=== PATIENT | male | born 1995 | race Caucasian/White ===

== ENCOUNTER → 2020-09-23 01:09 | Outpatient (CLI) | payer BC, SELFPAY ==
[2020-09-23 20:54] LABS: SARS-CoV-2 RNA PCR Negative
== END ==
PROVIDERS: PCP Nurse Practitioner Family; Visit Provider Internal Medicine Gastroenterology
DX: Z01.812 Encounter for preprocedural laboratory examination (principal); Z20.822 Contact with and (suspected) exposure to COVID-19
CPT/HCPCS: C9803; U0003; U0005

== ENCOUNTER 2020-09-27 00:34 | Day surgery (SDC) | payer BC, SELFPAY ==
[2020-09-14 13:05] VITALS: BMI 25.0
[2020-09-27 09:37] VITALS: BP 114/64; PULSE 77; RESP 18; TEMP 36.7; O2SAT 98; BMI 25.6
[2020-09-27] MEDS: LACTATED RINGERS 1,000 ML 150 ML IV CONT (10:01)
--- NOTE | 2020-09-27 10:37 | WPDANESEPPF ---
Anes - Initial Pre Proc Eval Procedure: Operation Date: 09/27/20 11:00 Proposed Procedures p Colonoscopy - Mateus Dougherty MD Date/Time: 09/27/20 10:37 Surgeon: Mateus Dougherty MD Pre Op Diagnosis: Rectal Bleeding Patient Data Age: 25 Gender: M Height: 5 ft 10 in Weight: 81.1 kg Last Vital Signs Temp 98.1 F 09/27/20 09:37 Pulse 77 09/27/20 09:37 Resp 18 09/27/20 09:37 BP 114/64 09/27/20 09:37 Pulse Ox 98 09/27/20 09:37 Allergies Allergy/AdvReac Type Severity Reaction Status Date / Time No Known Allergies Allergy Verified 09/14/20 13:05 Home Medications Medication Instructions Recorded Confirmed Type albuterol sulfate 90 mcg/actuation 1 inh INHALATION Q4H PRN #18 gm 08/29/20 09/14/20 Rx aerosol inhaler Patient hx anesthesia problems: none Family hx anesthesia problems: none PMFSH Past Medical History Medical History (Updated 08/29/20 @ 10:42 by Amy Kraft NP) Asthma Cervicalgia Encounter for wellness examination Foot deformity, congenital Lumbago Rectal bleeding Rhinitis Thoracic back pain Social History Social History Smoking status: Never smoker Alcohol intake: current Alcohol use details: ON A WEEKEND OCCASIONALLY Living arrangements: alone Gender identity (if verbalized by the patient): Male Spiritual care concerns: No Anes - Eval Final PreProcedure Day of Procedure 09/27/20 10:37 Patient weight: normal Heart: regular rate and rhythm Lungs: clear to auscultation Airway: Mallampati scale class II Neurological: alert and oriented Last oral intake: >/= 8 hours ASA classification: II Emergent: no Anesthetic plan: proceed Anesthesia type and monitoring: general GIVS and standard monitoring Informed Consent: The patient's anesthetic plan and its attendant risks and benefits were discussed with the patient/family/POA. Questions were solicited and answers provided to the satisfaction of the patient/family/POA.
--- NOTE | 2020-09-27 10:41 | P.HP_ITS ---
History of Present Illness History of Present Illness Consent: Risks, benefits, and alternatives have been discussed and questions answered. Patient agrees to proceed with procedure. Chief complaint: Rectal Bleeding Narrative: Davis Christensen is a 25 year old male with episode of rectal bleeding, never had colonoscopy Review of Systems Constitutional: Constitutional: Denies headache(s) and Denies weakness Eyes: Eyes: Denies blurry vision ENT: Reports Normal hearing present, Denies headache(s) and Denies neck pain Cardiovascular: Cardiovascular: Denies chest pain and Denies dyspnea Respiratory: Respiratory: Denies dyspnea Gastrointestinal: Gastrointestinal: Reports no additional gastrointestinal complaints Genitourinary: Genitourinary: Denies dysuria Musculoskeletal: Musculoskeletal: Denies neck pain Integumentary/Breasts: Skin/Breast: Denies dry skin Neurologic: Reports Normal hearing present, Denies headache(s) and Denies wea kness Psychiatric: Psychiatric: Denies anxiety Endocrine: Endocrine: Denies change in body appearance Hematologic/Lymphatic: Hematologic/Lymphatic: Denies easy bleeding Allergic/Immunologic: Allergic/Immunologic: Denies urticaria PMFSH Past Medical History Medical History (Updated 09/27/20 @ 10:42 by Mateus Dougherty MD) Asthma Blood in stool Cervicalgia Encounter for wellness examination Foot deformity, congenital Lumbago Rectal bleeding Rhinitis Thoracic back pain Social History Social History Smoking status: Never smoker Alcohol intake: current Alcohol use details: ON A WEEKEND OCCASIONALLY Living arrangements: alone Gender identity (if verbalized by the patient): Male Spiritual care concerns: No Meds Home Medications and Allergies Home Medications Medication Instructions Recorded Confirmed Type albuterol sulfate 90 mcg/actuation 1 inh INHALATION Q4H PRN #18 gm 08/29/20 09/14/20 Rx aerosol inhaler Allergies Allergy/AdvReac Type Severity Reaction Status Date / Time No Known Allergies Allergy Verified 09/14/20 13:05 Vital Signs Vital Signs - 24 hr 09/27/20 09:37 Temperature 98.1 F Pulse Rate 77 Respiratory Rate 18 Blood Pressure 114/64 Pulse Oximetry 98 Exam Const: General: comfortable and no acute distress HENMT: General nose exam: Normal nares present Eyes: General: appearance normal, both eyes and all related structures Neck: Neck: no JVD Resp: Auscultation: clear to auscultation bilaterally Cardio: Rate: regular rate Rhythm: regular rhythm GI: Inspection: non-distended GI Palp: Yes Soft to palpation Skin: General skin exam: normal color Neuro: General: gait normal Speech: normal speech Extrem: General: normal to inspection Psych: Mental Status: mental status grossly normal Assessment and Plan Assessment and plan (1) Blood in stool: Code(s): K92.1 - Melena Status: Acute Assessment and Plan: colonoscopy
[2020-09-27 11:00] VITALS: BP 104/66; PULSE 72; RESP 14; O2SAT 100
[2020-09-27 11:10] VITALS: BP 110/67; PULSE 65; RESP 24; O2SAT 100
[2020-09-27 11:20] VITALS: BP 113/67; PULSE 64; RESP 22; O2SAT 100
[2020-09-27 11:30] VITALS: BP 101/60; PULSE 69; RESP 13; O2SAT 100
== END 2020-09-27 11:35 | disposition home or self-care (01) ==
PROVIDERS: PCP Family Medicine; Visit Provider Internal Medicine Gastroenterology
PROC: 0DJD8ZZ Inspection of Lower Intestinal Tract, Via Natural or Artificial Opening Endoscopic (ICD-10-PCS; CPT 45378; principal; 2020-09-27 11:00)
DX: K92.1 Melena (principal); D12.3 Benign neoplasm of transverse colon; K63.5 Polyp of colon; K64.8 Other hemorrhoids; J45.909 Unspecified asthma, uncomplicated
CPT/HCPCS: 45385; 88305; J2704; J7120

== ENCOUNTER 2022-06-10 12:11 | Outpatient (CLI) | payer BC, SELFPAY ==
--- NOTE | ~2022-06-10 | XR_ITS ---
EXAMINATION: XR shoulder RT min 2V INDICATION: Chronic right shoulder pain TECHNIQUE: Four views of the right shoulder are submitted. COMPARISON: None FINDINGS: Normal alignment. No fracture. Glenohumeral and acromioclavicular joint spaces are normal. Soft tissues are unremarkable. IMPRESSION: 1. No acute osseous abnormality. Reviewed, dictated and finalized at location B. NFORMATICIST
== END 2022-06-10 12:12 | disposition home or self-care (01) ==
LOC: ANHIMG 12:17
PROVIDERS: PCP Family Medicine; Visit Provider Nurse Practitioner Family
DX: M25.511 Pain in right shoulder (principal)
CPT/HCPCS: 73030

== ENCOUNTER → 2022-11-25 10:08 | Outpatient (CLI) | payer BC, SELFPAY ==
--- NOTE | ~2022-11-25 | XR_ITS ---
PA, oblique, and lateral views of the left third finger Clinical history: Pain FINDINGS: No fracture or dislocation seen. Osseous alignment is anatomic. Joint spaces are preserved. Soft tissues are unremarkable. IMPRESSION: Unremarkable exam. Reviewed, dictated and finalized at location M. IMPRESSION: Unremarkable exam.
== END ==
PROVIDERS: PCP Family Medicine; Visit Provider Nurse Practitioner Family
DX: M79.645 Pain in left finger(s) (principal)
CPT/HCPCS: 73140

== ENCOUNTER → 2023-08-07 10:53 | Outpatient (CLI) | payer BC, SELFPAY ==
--- NOTE | ~2023-08-07 | XR_ITS ---
Left Hand Technique: PA, oblique, and lateral views were obtained. Clinical History: Pain Findings: No acute fracture or dislocation is seen. Osseous alignment is anatomic. Joint spaces are p reserved. Soft tissues are unremarkable. Impression: Unremarkable left hand. Reviewed, dictated and finalized at location M. IMAN HELPER Impression: Unremarkable left hand.
--- NOTE | ~2023-08-07 | XR_ITS ---
Right Hand Technique: PA, oblique, and lateral views were obtained. Clinical History: Pain Findings: No acute fracture or dislocation is seen. Osseous alignment is anatomic. Joint spaces are p reserved. Soft tissues are unremarkable. Impression: Unremarkable right hand. Reviewed, dictated and finalized at location M. POTATO CUTTER Impression: Unremarkable right hand.
== END ==
PROVIDERS: PCP Family Medicine; Visit Provider Nurse Practitioner Family
DX: M79.642 Pain in left hand (principal); M79.641 Pain in right hand
CPT/HCPCS: 73120

== ENCOUNTER 2023-12-23 11:46 | Emergency (ER) | payer BC, SELFPAY ==
[2023-12-23] VITALS (10 sets, daily range): BP systolic 105–141; BP diastolic 66–94; PULSE 65–75; RESP 17–18; TEMP 36.7; O2SAT 99–100
--- NOTE | ~2023-12-23 | CT_ITS ---
EXAMINATION: CT abdomen pelvis w con DATE: 12/23/2023 13:47 INDICATION: Abdominal distention TECHNIQUE: Computed tomography (CT) of the abdomen and pelvis was performed with 100 cc intravenous c ontrast. The dose-length product was 784.24 mGy-cm. Automated exposure control and iterative reconstr uction technique were employed. COMPARISON: None. FINDINGS: Lung bases unremarkable. Heart size normal. No significant pleural or pericardial effusion. No significant vascular abnormality. No significant pleural or pericardial effusion. Small hiatal he rnia. The liver, spleen, pancreas, adrenal glands and kidneys are unremarkable. Nonobstructive bowel gas pa ttern. There are mildly prominent ileocolic lymph nodes, likely reactive. Small fat-containing umbili christine hernia. No focal lytic or blastic lesions. There is grade 1 degenerative spondylolisthesis at L5- S1. IMPRESSION: 1. No acute abdominal abnormality. 2: Mildly enlarged ileocolic lymph nodes, likely reactive. 3: Small hiatal hernia. Reviewed, dictated and finalized at location B.
[2023-12-23 12:15] LABS: Basophils Percent Auto 0.6 % (0.2-1.2); Eosinophils Absolute Auto 0.2 K/mm3 (0-0.3); Eosinophils Percent Auto 2.8 % (0-4.4); Hematocrit 44.7 % (42.0-52.0); Hemoglobin 15.7 g/dL (14.0-18.0); Immature Granulocyte Absolute 0.02 K/mm3 (0.00-0.031); Immature Granulocyte Percent A 0.3 % (0-0.5); Lymphocytes Absolute Auto 1.68 K/mm3 (0.9-3.2); Lymphocytes Percent Auto 27.2 % (18.3-44.2); Mean Corpuscular HGB Conc 35.1 g/dl (32-36); Mean Corpuscular Hemoglobin 30.2 pg (26-34); Mean Platelet Volume 7.8 fl (7.4-10.4); Monocytes Absolute Auto 0.4 K/mm3 (0.1-0.6); Monocytes Percent Auto 6.6 % (2.6-8.5); Neutrophils Absolute Auto 3.9 K/mm3 (1.3-6.7); Neutrophils Percent Auto 62.5 % (45.5-73.1); Platelet Count Result 103 k/mm3 (150-375); Red Cell Distribution Width 12.9 % (11.5-14.5); White Blood Count 6.2 K/mm3 (4.5-10.0)
[2023-12-23 12:19] LABS: Appearance Urine Clear (Clear); Bacteria Urine None Seen /hpf; Bilirubin Urine Negative (Negative); Blood Urine Negative (Negative); Color Urine Yellow (Yellow); Glucose Urine UA Negative (Negative); Ketones Urine Trace mg/dL (Negative); Leukocyte Esterase Ur Negative LEU/UL (Negative); Nitrate Urine Negative (Negative); Non Pathogenic Casts 0-2; Protein Urine Trace mg/dL (Negative); RBC Urine 0-2 /hpf (0-2); Specific Grav Ur 1.025 (1.001-1.035); Squamous Epithelial Cell Urine None Seen /hpf (Few); WBC Urine 0-5 /hpf (0-3)
[2023-12-23 12:29] LABS: Add Urine Microscopic? YES
[2023-12-23 12:33] LABS: Alanine Aminotransferase 22 U/L (6-50); Albumin Level 4.7 g/dL (3.5-5.1); Alkaline Phosphatase 93 U/L (38-126); Anion Gap 12 mmol/L (4-12); Aspartate Amino Transferase 24 U/L (17-59); Bilirubin,Total 0.8 mg/dL (0.2-1.3); Blood Urea Nitrogen 14 mg/dL (9-20); Calcium 9.4 mg/dL (8.4-10.2); Carbon Dioxide 28 mmol/L (22-30); Chloride 100 mmol/L (98-107); Estimated CRCL calculation 121 ml/min; Estimated Glomerular Filt Rate > 60; Glucose 89 mg/dL (65-110); Lipase 48 U/L (23-300); Sodium 140 mmol/L (137-145)
--- NOTE | 2023-12-23 13:10 | ED.ABDPAIN ---
HPI - Abdominal Pain General Chief Complaint: Abdominal Pain Stated Complaint: abdominal pain Time Seen by Provider: 12/23/23 13:01 Source: patient Mode of arrival: ambulatory Limitations: no limitations History of Present Illness HPI narrative: Patient presents with abdominal pain and distension of one weeks' duration. LBM yesterday. He has been having diarrhea that has ranged from watery to semi-formed to some with fluffy pieces of stool . Pain is located in the upper abdomen but distension is throughout, 3/10 in severity. LBM was yesterday. Deneis being constipated. No nausea or vomiting. Last oral intake last night. Appetite slightly decreased. Pain is constant and described as crampy, non radiating, no palliating or provoking factors. He states maybe this has happened before though he can't distinctly remember. No prior abdominal surgeries. No penile pain or discharge, flank pain. Passing flatus. His PCP prescribed a medication for his recently that he started taking for this. No prior EGD. Last colonoscopy was a few years ago, unknown where. This was for other issues though he denies continuing to follow with that GI specialist. Unknown if any weight changes. Related Data Home Medications Medication Instructions Recorded Confirmed gqourkv-asygkdgbqblnt-qehwwrrl 250 1 tablet PO Q4-6H PRN 11/25/22 12/08/23 mg-250 mg-65 mg tablet (Excedrin Migraine) cetirizine 10 mg tablet (Zyrtec) 10 mg PO DAILY PRN 11/25/22 12/08/23 ibuprofen 800 mg tablet 800 mg PO TID PRN 12/09/22 12/08/23 Allergies Allergy/AdvReac Type Severity Reaction Status Date / Time No Known Allergies Allergy Verified 12/23/23 11:53 [facility] Past Medical History Medical History Abdominal pain Asthma Bloating Blood in stool Cervicalgia COVID-19 (~06/05/21) positive test on 06/05/2021 Elevated fasting glucose Encounter for wellness examination Foot deformity, congenital Hyperlipidemia Indigestion Left ankle pain Left hand pain Low back pain radiating to right leg Lumbago Migraine headache without aura Nail fungus Overweight (BMI 25.0-29.9) Pain of finger of left hand Paronychia of fifth toe of right foot Penile lump Polyp of colon (09/27/20) 4 mm polyp in the transverse colon and sigmoid colon with internal hemorrhoids on colonoscopy 09/27/2020 Rectal bleeding Rhinitis Right hand pain Right shoulder pain Seasonal allergies Thoracic back pain Tinea cruris Tinea pedis Weakness of both hands Surgical History Surgical History History of colonoscopy Social History Social History Smoking status: Never smoker Alcohol intake: current Alcohol use details: ON A WEEKEND OCCASIONALLY Substance use: never Substance use type: does not use Lack of Transportation: No Lack of Food: Never True Current Housing: I Have Housing Concerned About Future Housing: No Difficulty Paying Gas/Electric Bills: No Difficulty Paying for Meds: No Currently Unemployed: No Education: High School Diploma/GED Difficulty w/ Childcare or Family Care: No Living arrangements: alone Gender identity (if verbalized by the patient): Male Spiritual care concerns: No Exam Narrative: GENERAL: Well-appearing, well-nourished, and in no acute distress. HEAD: Normocephalic, atraumatic. EYES: Non injected, non icteric ENT: Nares clear, no rhinorrhea or epistaxis. NECK: Supple. CHEST: Speaking in full sentences. No respiratory distress. HEART: Regular rate and rhythm. . ABDOMEN: Soft, distended with generalized tenderness to palpation throughout. Not peritoneal. EXTREMITIES: Normal range of motion. No edema. SKIN: Warm, dry, no rash. NEURO: No focal deficits. Alert and oriented x3. PSYCH: Normal mood and affect. Course Vital Signs Vital signs: Vital Signs Tem
[2023-12-23 14:36] LABS: Influenza A QL RT-PCR Negative (Negative); Influenza B QL RT-PCR Negative (Negative); SARS-CoV-2 RNA PCR Positive (Negative)
[2023-12-23] MEDS: PANTOPRAZOLE 40 MG TABLET PO (16:04)
[2023-12-23] MEDS: MORPHINE SULFATE (*CRX) 4 MG/ML INJ IV PUSH (16:05)
== END 2023-12-23 16:55 | disposition home or self-care (01) ==
PROVIDERS: Emergency Provider Student in an Organized Health Care Education/Training Program; PCP Family Medicine
DX: R14.0 Abdominal distension (gaseous) (principal); D69.6 Thrombocytopenia, unspecified; U07.1 COVID-19; R59.0 Localized enlarged lymph nodes; K44.9 Diaphragmatic hernia without obstruction or gangrene; J45.909 Unspecified asthma, uncomplicated; E78.5 Hyperlipidemia, unspecified
CPT/HCPCS: 36415; 74177; 80053; 81001; 83690; 83735; 85025; 87636; 96374; 99284; A9270; J2270; Q9967

== ENCOUNTER 2024-07-21 08:55 | Outpatient (CLI) | payer BC, SELFPAY ==
--- OUTSIDE RECORDS SUMMARY | 2024-07-21 09:03 | XMS_ITS | Clinical Summary ---
Author Organization [facility] Address [address] [place] [id number] Phone Care Team Providers Care Humidifier Operator Name Role Phone Remigio Pinto MD Primary Care Provider [phone] Allergies No known active allergies Medications albuterol 108 (90 Base) MCG/ACT Aerosol Solution INHALE 1 PUFF BY MOUTH EVERY 4 HOURS NEEDED FOR SHORTNESS OF BREATH OR WHEEZING Active Active Problems No known active problems Immunizations Immunization Administration Dates Next Due TDAP Vaccine 08/08/2021 Social History Tobacco Use Types Packs/Day Years Used Date Smoking Tobacco: Never Smokeless Tobacco: Never Sex and Gender Information Value Date Recorded Sex Assigned at Not on file Legal Sex Male 11:07 PM CDT Gender Identity Not on file Sexual Orientation Not on file Last Filed Vital Signs Vital Sign Reading Time Taken Comments Blood Pressure 124/76 08/08/2021 5:19 PM ENGINEER STATION MAINLINE Pulse 78 08/08/2021 5:19 PM ENGINEER STATION MAINLINE Temperature 36.8 C (98.2 F) 08/08/2021 5:19 PM ENGINEER STATION MAINLINE Respiratory Rate 16 08/08/2021 5:19 PM ENGINEER STATION MAINLINE Oxygen Saturation 99% 08/08/2021 5:19 PM ENGINEER STATION MAINLINE Inhaled Oxygen Concentration - - Weight 86.2 kg (190 lb) 08/08/2021 5:19 PM ENGINEER STATION MAINLINE Height 177.8 cm (5' 10 ) 08/08/2021 5:19 PM ENGINEER STATION MAINLINE Body Mass Index 27.26 08/08/2021 5:19 PM ENGINEER STATION MAINLINE Plan of Treatment Health Maintenance Due Date Last Done Comments Hepatitis C Virus (HCV) Screening 1993 Hepatitis B Immunization (1 of 3 - 19+ 3-dose series) 2012 Influenza Immunization (#1) 2024 SARS-COV-2 Immunization ( season) 2024 Respiratory Syncytial Virus (RSV) Immunization (Adult) (1 - 1-dose 75+ series) 2068 DTaP/Tdap/Td Immunization Discontinued 08/08/2021 Meningococcal Immunization (ACWY) Aged Out No longer eligible based on patient's age to complete this topic Pneumococcal Immunization Combined Aged Out No longer eligible b ased on patient's age to complete this topic Rotavirus Immunization Aged Out No lo nger eligible based on patient's age to complete this topic Insurance GENERIC Care Teams Humidifier Operator Relationship Specialty Start Date End Date Remigio Pinto MD [address] [id number] PCP - General Family Medicine 05/30/21
--- OUTSIDE RECORDS SUMMARY | 2024-07-21 09:03 | XMS_ITS | Clinical Summary ---
Author Organization [facility] Address [address] [place] [address] Care Team Providers Care Linux Developer Name Role Phone Remigio Pinto MD Primary Care Provider [phone] [phone] Allergies No known active allergies Medications fluticasone propion-salmete roL (ADVAIR DISKUS) 250-50 mcg/dose diskus inhaler Inhale 1 puff 2 (two) times a day 1 Active meloxicam (MOBIC) 15 mg tablet Take 1 tablet (15 mg total) by mouth daily 30 tablet 1 Active Additional Information Patient not taking.Reported on 02/27/2024 tiZANidine (ZANAFLEX) 2 mg tablet Tizanidine 2 milligrams. May take 1 tablet up to 3 times a day. Start at bedtime to see reaction to the medication. 45 tablet 1 Active Additional Information Patient not taking.Reported on 02/27/2024 levalbuterol (XOPENEX HFA) 45 mcg/actuation inhalerIndicati ons:Influenza A INHALE 2 PUFFS BY MOUTH EVERY 4 HOURS NEEDED FOR SHORTNESS OF BREATH 4 Active levalbuterol (XOPENEX HFA) 45 mcg/actuation inhalerIndicati ons:Influenza A Inhale 1-2 puffs every 4 (four) hours as needed for wheezing 1 each 4 Active Additional Information Patient not taking.Reported on 03/20/2024 traMADoL (ULTRAM) 50 mg tablet Take by mouth every 6 (six) hours as needed 4 Active omeprazole (PriLOSEC) 40 mg capsule Take 1 capsule (40 mg total) by mouth daily 4 Active ibuprofen (ADVIL,MOTRIN) 800 mg tablet Take by mouth every 6 (six) hours as needed 4 Active benzonatate (TESSALON) 100 mg capsuleIndicati ons:Cough Take 1 capsule (100 mg total) by mouth 3 (three) times a day as needed for cough 30 capsule 4 Active Active Problems Problem Noted Date Diagnosed Date 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 Medical History Medical History Date Comments Asthma Family History Medical History Relation Name Comments No Known Problems Father Cancer Maternal Grandfather Family history of malignant neoplasm - Relation: Grandfather (Added by TW Conv) No Known Problems Mother Arthritis Other 1 Family history of arthritis - Relation: Grandmother (Added by TW Conv) Cancer Other 2 Family history of malignant neoplasm - Relation: Grandmother (Added by TW Conv) Relation Name Status Comments Father Alive Maternal Grandfather Mother Alive Other 1 Other 2 Social History Tobacco Use Types Packs/Day Years Used Date Smoking Tobacco: Never Tobacco Cessation:Counseling Given: Not Answered Personal Safety Answer Date Recorded Getting School Help Needed Not on file 07/27 Sex and Gender Information Value Date Recorded Sex Assigned at Not on file Legal 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 Gender Identity Not on file Sexual Orientation Not on file 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 Not on file Not on file Not on file Obstetrics History Last Filed Vital Signs Vital Sign Reading Time Taken Comments Blood Pressure 126/76 03/20/2024 5:36 PM CDT Pulse 94 03/20/2024 5:36 PM CDT Temperature 36 C (96.8 F) 03/20/2024 5:36 PM CDT Respiratory Rate 23 03/20/2024 5:36 PM CDT Oxygen Saturation 97% 03/20/2024 5:36 PM CDT Inhaled Oxygen Concentration - - Weight 91.7 kg (202 lb 3.2 oz) 03/20/2024 5:36 P M CDT Height 177.8 cm (5' 10 ) 03/20/2024 5:36 PM CDT Body Mass Index 29.01 03/20/2024 5:36 PM CDT Plan of Treatment Health Maintenance Due Date Last Done Comments Depression Screening 1993 Hepatitis C Screening 1993 Varicella Vaccines (1 of 2 - 13+ 2-dose series) 2006 Hepatitis B Screening 08/27/2011 Regular Well Visit/Exam 18-64 08/27/2011 Influenza Vaccine (#1) 2024 DTaP/Tdap/Td Vaccine (2 - Td or Tdap) 08/09/2031 08/08/2021 HPV Vaccines Aged Out No longer eligi ble based on patient's age to complete this topic Pneumococcal vaccine <65 Aged Out No longer eligible based on patient's age to complete this topic Insurance [facility] PL[facility] Address: [address] [address] [place] [address] [employer] [facility] [employer] [place] [facility] Care Teams Linux Developer Relationship Specialty Start Date End Date Remigio Pinto MD [address] [phone] PCP - General 12/14/18
--- OUTSIDE RECORDS SUMMARY | 2024-07-21 09:03 | XMS_ITS | Referral Summary ---
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 Social History Tobacco Use Types Packs/Day Years Used Date Smoking Tobacco: Never Tobacco Cessation:Counseling Given: Not Answered Personal Safety Answer Date Recorded Getting School Help Needed Not on file 07/27 Sex and Gender Information Value Date Recorded Sex Assigned at Not on file Legal Sex Male 7:11 PM ORTHOPEDIC DESIGNER Gender Identity Not on file Sexual Orientation Not on file 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
--- NOTE | 2024-07-21 11:30 | NEURO_ITS ---
Impression: # Complains of numbness and stiffness of hands. Non-diabetic. ? # No Carpal Tunnel Syndrome. ? # Left ulnar neuropathy across the elbow. ? # Normal needle/EMG. Nerve Conduction Studies Anti Sensory Summary Table ?Stim Site NR Peak (ms) P-T Amp (?V) Site1 Site2 Delta-P (ms) Dist (cm) Roosevelt (m/s) Left Median Anti Sensory (2-3nd Digit) Wrist ? 2.5 98.7 Wrist 2-3nd Digit 2.5 14.0 56 Wrist ? 2.5 96.2 Wrist 2-3nd Digit 2.5 14.0 56 Right Median Anti Sensory (2-3nd Digit) Wrist ? 2.4 80.2 Wrist 2-3nd Digit 2.4 14.0 58 Wrist ? 2.4 67.9 Wrist 2-3nd Digit 2.4 14.0 58 Left Radial Anti Sensory (Base 1st Digit) Wrist ? 2.0 31.9 Wrist Base 1st Digit 2.0 0.0 Right Radial Anti Sensory (Base 1st Digit) Wrist ? 2.0 24.1 Wrist Base 1st Digit 2.0 0.0 Left Ulnar Anti Sensory (5th Digit) Wrist ? 2.3 95.4 Wrist 5th Digit 2.3 14.0 61 Right Ulnar Anti Sensory (5th Digit) Wrist ? 2.2 69.8 Wrist 5th Digit 2.2 14.0 64 Motor Summary Table ?Stim Site NR Onset (ms) O-P Amp (mV) Site1 Site2 Delta-0 (ms) Dist (cm) Roosevelt (m/s) Left Median Motor (Abd Poll Brev) Wrist ? 3.2 3.1 Elbow Wrist 5.0 31.0 62 Elbow ? 8.2 3.9 Right Median Motor (Abd Poll Brev) Wrist ? 3.3 6.0 Elbow Wrist 5.1 29.0 57 Elbow ? 8.4 5.8 Left Ulnar Motor (Abd Dig Minimi) Wrist ? 2.7 5.2 A Elbow Wrist 6.1 31.0 51 A Elbow ? 8.8 3.9 B Elbow Wrist 3.5 24.0 69 B Elbow ? 6.2 3.0 Right Ulnar Motor (Abd Dig Minimi) Wrist ? 2.8 6.0 A Elbow Wrist 5.4 31.0 57 A Elbow ? 8.2 4.3 F Wave Studies ?NR F-Lat (ms) L-R F-Lat (ms) Left Median (Mrkrs) (Abd Poll Brev) ? 28.60 1.21 Right Median (Mrkrs) (Abd Poll Brev) ? 27.39 1.21 Left Ulnar (Mrkrs) (Abd Dig Min) ? 27.66 1.09 Right Ulnar (Mrkrs) (Abd Dig Min) ? 26.57 1.09 EMG ?Side Muscle Nerve Root Ins Act Fibs Amp Dur Recrt Comment Right 1stDorInt Ulnar C8-T1 Nml Nml Nml Nml Nml Right Ext Indicis Radial (Post Int) C7-8 Nml Nml Nml Nml Nml Right Ext Digitorum Radial (Post Int) C7-8 Nml Nml Nml Nml Nml Right BrachioRad Radial C5-6 Nml Nml Nml Nml Nml Right PronatorTeres Median C6-7 Nml Nml Nml Nml Nml Right Abd Poll Brev Median C8-T1 Nml Nml Nml Nml Nml Right ABD Dig Min Ulnar C8-T1 Nml Nml Nml Nml Nml Left 1stDorInt Ulnar C8-T1 Nml Nml Nml Nml Nml Left Ext Indicis Radial (Post Int) C7-8 Nml Nml Nml Nml Nml Left Ext Digitorum Radial (Post Int) C7-8 Nml Nml Nml Nml Nml Left BrachioRad Radial C5-6 Nml Nml Nml Nml Nml Left PronatorTeres Median C6-7 Nml Nml Nml Nml Nml Left Abd Poll Brev Median C8-T1 Nml Nml Nml Nml Nml Left ABD Dig Min Ulnar C8-T1 Nml Nml Nml Nml Nml MTDD
== END 2024-07-21 08:56 | disposition home or self-care (01) ==
PROVIDERS: PCP Family Medicine; Visit Provider Nurse Practitioner Family
DX: R29.898 Other symptoms and signs involving the musculoskeletal system (principal); M79.641 Pain in right hand; M79.642 Pain in left hand; G56.22 Lesion of ulnar nerve, left upper limb
CPT/HCPCS: 95886; 95911

== ENCOUNTER 2024-10-14 15:42 | Emergency (ER) | payer BC, SELFPAY ==
--- NOTE | ~2024-10-14 | XR_ITS ---
EXAMINATION: XR chest 1V portable DATE: 10/14/2024 16:11 INDICATION: Palpitations TECHNIQUE: frontal view of the chest was obtained. COMPARISON: Chest CT dated 12/17/2018 FINDINGS: The lungs remain clear with no focal airspace opacities, pulmonary edema, pleural effusion or pneumot horax. The cardiomediastinal silhouette is normal. Visualized bones and soft tissues are unremarkable . IMPRESSION: 1. No acute cardiopulmonary disease. Reviewed, dictated and finalized at location A.
--- NOTE | 2024-10-14 15:44 | ECG_ITS ---
Test Date: 2024-10-14 15:53:44 Measurements Intervals [place] Rate: 86 P: 46 MS: 155 QRS: 34 QRSD: 93 T: 41 QT: 333 QTc: 400 Interpretive Statements SINUS RHYTHM NORMAL EKG No previous ECG available for comparison Electronically Signed On 10-15-2024 09:47:32 CDT by Rg Galvez M.D.
--- OUTSIDE RECORDS SUMMARY | 2024-10-14 15:45 | XMS_ITS | Referral Summary ---
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 [employer] [place] Care Teams Public Works Laborer Relationship Specialty Start Date End Date Remigio Pinto MD [address] [phone] PCP - General 12/14/18
--- OUTSIDE RECORDS SUMMARY | 2024-10-14 15:45 | XMS_ITS | Clinical Summary ---
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 [facility] [employer] [facility] Care Teams Electroplating Worker Relationship Specialty Start Date End Date Remigio Pinto MD [address] [phone] PCP - General 12/14/18
--- OUTSIDE RECORDS SUMMARY | 2024-10-14 15:45 | XMS_ITS | Clinical Summary ---
Author Organization [facility] Address [address] [place] [id number] Phone Care Team Providers Care Professor Of Pathology Name Role Phone Remigio Pinto MD Primary Care Provider [phone] Allergies No known active allergies Medications albuterol [...] Comments Blood Pressure 124/76 08/08/2021 5:19 PM AUTOMATION/CONTROLS MANAGER Pulse 78 08/08/2021 5:19 PM AUTOMATION/CONTROLS MANAGER Temperature 36.8 C (98.2 F) 08/08/2021 5:19 PM AUTOMATION/CONTROLS MANAGER Respiratory Rate 16 08/08/2021 5:19 PM AUTOMATION/CONTROLS MANAGER Oxygen Saturation 99% 08/08/2021 5:19 PM AUTOMATION/CONTROLS MANAGER Inhaled Oxygen Concentration - - Weight 86.2 kg (190 lb) 08/08/2021 5:19 PM AUTOMATION/CONTROLS MANAGER Height 177.8 cm (5' 10 ) 08/08/2021 5:19 PM AUTOMATION/CONTROLS MANAGER Body Mass Index 27.26 08/08/2021 5:19 PM AUTOMATION/CONTROLS MANAGER Plan of Treatment Health Maintenance Due Date [...] complete this topic Insurance GENERIC Care Teams Professor Of Pathology Relationship Specialty Start Date End Date Remigio Pinto MD [address] [address] PCP - General Family Medicine 05/30/21
[2024-10-14 15:59] VITALS: BP 143/84; PULSE 86; RESP 16; O2SAT 100
[2024-10-14 16:54] LABS: Basophils Percent Auto 0.4 % (0.2-1.2); Eosinophils Absolute Auto 0.1 K/mm3 (0-0.3); Eosinophils Percent Auto 0.8 % (0-4.4); Hematocrit 44.1 % (42.0-52.0); Hemoglobin 15.2 g/dL (14.0-18.0); Immature Granulocyte Absolute 0.02 K/mm3 (0.00-0.031); Immature Granulocyte Percent A 0.3 % (0-0.5); Lymphocytes Absolute Auto 1.74 K/mm3 (0.9-3.2); Lymphocytes Percent Auto 22.7 % (18.3-44.2); Mean Corpuscular HGB Conc 34.5 g/dl (32-36); Mean Corpuscular Hemoglobin 29.6 pg (26-34); Mean Corpuscular Volume 85.8 fl (80-100); Mean Platelet Volume 7.7 fl (7.4-10.4); Monocytes Absolute Auto 0.6 K/mm3 (0.1-0.6); Monocytes Percent Auto 8.3 % (2.6-8.5); Neutrophils Absolute Auto 5.2 K/mm3 (1.3-6.7); Neutrophils Percent Auto 67.5 % (45.5-73.1); Platelet Count Result 107 k/mm3 (150-375); Red Blood Count 5.14 M/mm3 (4.6-6.20); Red Cell Distribution Width 12.5 % (11.5-14.5); White Blood Count 7.7 K/mm3 (4.5-10.0)
[2024-10-14 17:06] LABS: Anion Gap 13 mmol/L (4-12); Blood Urea Nitrogen 16 mg/dL (9-20); Calcium 9.8 mg/dL (8.4-10.2); Carbon Dioxide 24 mmol/L (22-30); Chloride 101 mmol/L (98-107); Estimated CRCL calculation 136 ml/min; Estimated Glomerular Filt Rate > 60; Glucose 89 mg/dL (65-110); Potassium 3.4 mmol/L (3.4-5.0); Sodium 138 mmol/L (137-145)
--- OUTSIDE RECORDS SUMMARY | 2024-10-14 17:11 | XMS_ITS | Clinical Summary ---
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
--- OUTSIDE RECORDS SUMMARY | 2024-10-14 17:11 | XMS_ITS | Referral Summary ---
Author Organization 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
--- OUTSIDE RECORDS SUMMARY | 2024-10-14 17:11 | XMS_ITS | Clinical Summary ---
Author Organization [facility] Address [address] [place] [phone] Phone Care Team Providers Care Mail Reader Name Role Phone Remigio Pinto MD Primary Care Provider [phone] Allergies No known active allergies Medications albuterol [...] Comments Blood Pressure 124/76 08/08/2021 5:19 PM VISUALIZATION DEVELOPER Pulse 78 08/08/2021 5:19 PM VISUALIZATION DEVELOPER Temperature 36.8 C (98.2 F) 08/08/2021 5:19 PM VISUALIZATION DEVELOPER Respiratory Rate 16 08/08/2021 5:19 PM VISUALIZATION DEVELOPER Oxygen Saturation 99% 08/08/2021 5:19 PM VISUALIZATION DEVELOPER Inhaled Oxygen Concentration - - Weight 86.2 kg (190 lb) 08/08/2021 5:19 PM VISUALIZATION DEVELOPER Height 177.8 cm (5' 10 ) 08/08/2021 5:19 PM VISUALIZATION DEVELOPER Body Mass Index 27.26 08/08/2021 5:19 PM VISUALIZATION DEVELOPER Plan of Treatment Health Maintenance Due Date [...] complete this topic Insurance GENERIC Care Teams Mail Reader Relationship Specialty Start Date End Date Remigio Pinto MD [address] [id number] PCP - General Family Medicine 05/30/21
--- NOTE | 2024-10-14 18:32 | ED_ITS ---
HPI - Arrhythmia/Palpitations General Chief Complaint: Arrhythmia/Palpitations Stated Complaint: Elevated HR earlier (185), mouth hands tingling Time Seen by Provider: 10/14/24 15:57 History of Present Illness HPI narrative: Patient states he was at work when he noticed that his rate went up to 185, this lasted for several minutes then came back to normal. He was anxious and felt like his hands and feet were tingling. Related Data Home Medications Medication Instructions Recorded Confirmed Last Taken Type hnjttun-njpyidoornfpj-ahbnmkdz 250 1 tablet PO Q4-6H PRN 11/25/22 03/22/24 Unknown History mg-250 mg-65 mg tablet (Excedrin Migraine) cetirizine 10 mg tablet (Zyrtec) 10 mg PO DAILY PRN 11/25/22 03/22/24 Unknown History ibuprofen 800 mg tablet 800 mg PO TID PRN 12/09/22 03/22/24 Unknown History Allergies Allergy/AdvReac Type Severity Reaction Status Date / Time No Known Allergies Allergy Verified 10/14/24 15:44 Review of Systems 2 Review of Systems: All systems reviewed & are unremarkable except as noted in HPI and below PMFSH Past Medical History Medical History Abdominal pain Asthma Bloating Blood in stool Cervicalgia COVID-19 (~06/05/21) positive test on 06/05/2021 Elevated fasting glucose Encounter for wellness examination Foot deformity, congenital Hyperlipidemia Indigestion Left ankle pain Left hand pain Low back pain radiating to right leg Lumbago Migraine headache without aura Nail fungus Overweight (BMI 25.0-29.9) Pain of finger of left hand Paronychia of fifth toe of right foot Penile lump Polyp of colon (09/27/20) 4 mm polyp in the transverse colon and sigmoid colon with internal hemorrhoids on colonoscopy 09/27/2020 Rectal bleeding Rhinitis Right hand pain Right shoulder pain Seasonal allergies Thoracic back pain Tinea cruris Tinea pedis Weakness of both hands Surgical History Surgical History History of colonoscopy Social History Social History Smoking status: Never smoker Alcohol intake: current Alcohol use details: ON A WEEKEND OCCASIONALLY Substance use: never Substance use type: does not use Lack of Transportation: No Lack of Food: Never True Current Housing: I Have Housing Concerned About Future Housing: No Difficulty Paying Gas/Electric Bills: No Difficulty Paying for Meds: No Currently Unemployed: No Education: High School Diploma/GED Difficulty w/ Childcare or Family Care: No Living arrangements: alone Gender identity (if verbalized by the patient): Male Spiritual care concerns: No Exam 2 Narrative: EXAMINATION OF ORGAN SYSTEMS/BODY AREAS: Constitutional: Vital signs per nursing GENERAL: Appears anxious HEAD: Normal with no signs of head trauma. EYES: EOMI, conjunctiva normal ENT: Hearing grossly intact LUNGS: Nonlabored breathing. HEART: [Regular rate and rhythm] ABD: [Soft], [nontender to palpation] EXT: Normal range of motion SKIN: [No rashes or lesions.] NEURO: [Alert and oriented x 3. No gross focal sensory or strength deficits.] PSYCH: Anxious affect Course Vital Signs Vital signs: Vital Signs Pulse Rate 86 10/14/24 15:59 Respiratory Rate 16 10/14/24 15:59 Blood Pressure 143/84 H 10/14/24 15:59 Pulse Oximetry 100 10/14/24 15:59 Oxygen Delivery Room Air 10/14/24 15:59 Pulse Rate 86 10/14/24 15:59 Respiratory Rate 16 10/14/24 15:59 Blood Pressure 143/84 H 10/14/24 15:59 Pulse Oximetry 100 10/14/24 15:59 Oxygen Delivery Room Air 10/14/24 16:34 MDM - Arrhythmia/Palpitations MDM Narrative Medical decision making narrative: Patient presenting here with symptoms consistent with panic attack versus possibly SVT. On exam patient is anxious appearing slightly hyperventilating. I will obtain EKG and chest xray to rule out arrhythmia/ischemia, pneumothorax, or other cause of chest discomfort/shortness of breath. Labs to rule out electrolyte abnormality or thyroid abnormality. Chest x-ray on my independent interpretation does not show any acute abnormality, no pneumothorax or consolidation. EKG - 12-Lead: Performed at 1553. Interpreted by me. [Sinus rhythm]. Rate 86. [Normal] axis. WY-interval 155. QRS duration 93. QTc 400. [No ST segment elevation or depression]. [T-wave normal]. Impression: No EKG evidence of acute ischemia or dysrhythmia. On reevaluation patient is feeling better, resting comfortably, vital signs now stable. I do feel patient is stable for discharge home at this time with followup to their doctor, and return here if symptoms return or worsen. Agreeable to outpatient management. Lab Data 10/14/24 16:32 10/14/24 16:32 Labs: Lab Results 10/14/24 Range/Units 16:32 WBC 7.7 (4.5-10.0) K/mm3 RBC 5.14 (4.6-6.20) M/mm3 Hgb 15.2 (14.0-18.0) g/dL Hct 44.1 (42.0-52.0) % MCV 85.8 (80-100) fl MCH 29.6 (26-34) pg MCHC 34.5 (32-36) g/dl RDW 12.5 (11.5-14.5) % Plt Count 107 L (150-375) k/mm3 MPV 7.7 (7.4-10.4) fl Immature Gran % (Auto) 0.3 (0-0.5) % Neut % (Auto) 67.5 (45.5-73.1) % Lymph % (Auto) 22.7 (18.3-44.2) % [place] % (Auto) 8.3 (2.6-8.5) % Eos % (Auto) 0.8 (0-4.4) % Baso % (Auto) 0.4 (0.2-1.2) % Lymph # (Auto) 1.74 (0.9-3.2) K/mm3 [place] # (Auto) 0.6 (0.1-0.6) K/mm3 Eos # (Auto) 0.1 (0-0.3) K/mm3 Baso # (Auto) 0.0 (0.0-0.1) K/mm3 Abs Immat Gran (auto) 0.02 (0.00-0.031) K/mm3 Absolute Neuts (auto) 5.2 (1.3-6.7) K/mm3 Absolute Nucleated RBC 0.000 (0.0-0.012) K/mm3 Nucleated RBC % 0.0 (0.0-0.2) % Sodium 138 (137-145) mmol/L Potassium 3.4 (3.4-5.0) mmol/L Chloride 101 (98-107) mmol/L Carbon Dioxide 24 (22-30) mmol/L Anion Gap 13 H (4-12) mmol/L BUN 16 (9-20) mg/dL Creatinine 0.80 (0.7-1.3) mg/dL Estim Creat Clear Calc 136 ml/min Estimated GFR > 60 (59 - ) Glucose 89 (65-110) mg/dL Calcium 9.8 (8.4-10.2) mg/dL TSH (Reflex) 2.340 (0.465-4.68) uIU/mL Discharge Plan Discharge Clinical Impression: Palpitations Patient Disposition: Home Condition: Stable Instructions: Supraventricular Tachycardia (ED), Heart Palpitations (ED) Additional Instructions: Your labs today were normal. Please follow-up with primary care doctor, try to avoid caffeine, you can always return to the hospital if your symptoms return or worsen. Patient Language: Tajik Prescriptions: No Action ibuprofen 800 mg tablet 800 mg PO TID PRN omeprazole 40 mg capsule,delayed release(DR/EC) 40 mg PO DAILY Qty: 30 2RF montelukast [Singulair] 10 mg tablet 10 mg PO QHS Qty: 30 11RF azithromycin 250 mg tablet See Rx Instructions PO .COMPLEX Qty: 6 0RF Rx Instructions: For 250 mg dose pack: take 500 mg today (day 1), then 250 mg for 4 days (days 2-5) PO fluticasone propion-salmeterol [Advair Diskus] 250-50 mcg/dose blister with device 1 inh inhalation BID Qty: 60 5RF ketoconazole 2 % cream 1 applic topical DAILY Qty: 30 2RF cetirizine [Zyrtec] 10 mg tablet 10 mg PO DAILY PRN fluticasone propionate [Flonase Allergy Relief] 50 mcg/actuation spray,suspension 1 spray intranasal Q12H Qty: 16 5RF Rx Instructions: administer into each nostril Excedrin Migraine 250-250-65 mg tablet 1 tablet PO Q4-6H PRN acetaminophen 500 mg capsule 1,000 mg PO Q6H PRN (Reason: pain) Qty: 20 0RF levalbuterol tartrate 45 mcg/actuation HFA aerosol inhaler 2 inh inhalation Q4H PRN (Reason: shortness of breath) Qty: 15 11RF Follow-up/Referrals: Remigio Pinto MD [Primary Care Provider] - 2 Days
== END 2024-10-14 18:43 | disposition home or self-care (01) ==
PROVIDERS: Emergency Provider Emergency Medicine; PCP Family Medicine
DX: R00.2 Palpitations (principal); J45.909 Unspecified asthma, uncomplicated; E78.5 Hyperlipidemia, unspecified
CPT/HCPCS: 36415; 71045; 80048; 84443; 85025; 93005; 99283